=== PATIENT | male | born 1970 | race Caucasian/White ===

== ENCOUNTER 2020-11-09 18:35 | Emergency (ER) | payer BC, SELFPAY | END 2020-11-09 19:35 | disposition home or self-care (01) | LOC: BURERS 18:35 | DX: K40.90 Unilateral inguinal hernia, without obstruction or gangrene, not specified as recurrent (principal); M25.472 Effusion, left ankle | CPT/HCPCS: 99283 ==

== ENCOUNTER 2022-01-10 16:04 | Emergency (ER) | payer SELFPAY ==
[2022-01-10] MEDS ORDERED: Boostrix 0.5 ML (Tdap) VIAL (>/=7 yrs of age) ONE (16:24)
[2022-01-10] MEDS ORDERED: HYDROcodone/Acetaminophen 10/325 mg Tablet ONE (16:24)
[2022-01-10] MEDS ORDERED: Bupivacaine 0.5% 10 ML VIAL ONE (16:29)
[2022-01-10] MEDS ORDERED: Ondansetron ODT 4 MG TAB ONE (16:29)
[2022-01-10] MEDS ORDERED: Clindamycin 150 MG CAP ONE (16:29)
== END 2022-01-10 17:22 | disposition home or self-care (01) ==
LOC: BURERS 16:04
DX: U07.1 COVID-19 (principal); L03.011 Cellulitis of right finger; J06.9 Acute upper respiratory infection, unspecified
CPT/HCPCS: 26011; 87804; 90471; 90715; J3490; Q0162; U0003; U0005

== ENCOUNTER 2022-01-14 18:56 | Emergency (ER) | payer SELFPAY | END 2022-01-14 19:10 | disposition home or self-care (01) | LOC: BURERS 18:56 | DX: Z48.00 Encounter for change or removal of nonsurgical wound dressing (principal); I10 Essential (primary) hypertension | CPT/HCPCS: 99282 ==

== ENCOUNTER 2022-02-02 12:18 | Emergency (ER) | payer SELFPAY ==
[2022-02-02 12:52] LABS: #Basophils 0.1 thou/uL (0.0-0.2); #Eosinphils 0.2 thou/uL (0.0-0.7); #Lymphocytes 2.5 thou/uL (1.20-3.40); #Monocytes 0.6 thou/uL (0.11-0.59); #Neutrophils 3.2 thou/uL (1.40-6.50); %Basophils 1.3 % (0.0-1.0); %Eosinophils 2.4 % (0.0-10.0); %Lymphocytes 37.9 % (21.0-51.0); %Monocytes 9.7 % (0.0-10.0); %Neutrophils 48.7 % (42.0-75.0); Hemoglobin 12.2 g/dL (14.0-18.0); Mean Corpuscular HGB CONC 32.2 g/dL (32.0-36.0); Mean Corpuscular Hemoglobin 28.2 pg (27.0-31.0); Mean Corpuscular Volume 87.6 fl (78.0-98.0); Mean Platelet Volume 7.9 fL (7.4-10.4); Platelet Count 426 10x3/uL (130-400); RBC Distribution Width 13.7 % (11.5-14.5); Red Blood Cell (RBC) Count 4.32 mill/uL (4.70-6.10); White Blood Cell (WBC) Count 6.6 10x3/uL (4.8-10.8)
[2022-02-02 13:06] LABS: ALT (SGPT) 15 U/L (8-55); AST (SGOT) 15 U/L (5-34); Alkaline Phosphatase 63 U/L (40-110); Anion Gap 12 mmol/L (10-20); BUN (Urea Nitrogen) 11 mg/dL (8.4-25.7); Bilirubin, Total 0.3 mg/dL (0.2-1.2); Calc. Creatinine Clearance 0 mL/min (70-130); Calcium 9.5 mg/dL (7.8-10.44); Carbon Dioxide 28 mmol/L (22-29); Chloride 103 mmol/L (98-107); Estimated GFR 82; Globulin 3.6 g/dL (2.4-3.5); Glucose 85 mg/dL (70-105); Potassium 4.1 mmol/L (3.5-5.1); Protein, Total 7.6 g/dL (6.0-8.3); Sodium 139 mmol/L (136-145)
[2022-02-02] MEDS ORDERED: Morphine 4 MG/ML VIAL ONE (13:19)
[2022-02-02] MEDS ORDERED: Ondansetron PF 4 MG/2 ML Vial ONE (13:19)
[2022-02-02] MEDS ORDERED: cefTRIAXone\\ROCEPHIN 2 GM VIAL ONE (13:19)
[2022-02-02] MEDS ORDERED: Sodium Chloride 0.9% 100 ML ONE (13:20)
[2022-02-02] MEDS ORDERED: hydrALAZINE 20 MG/ML VIAL ONE (14:03)
[2022-02-02 16:29] LABS: SARS-CoV-2 NAA Rapid Test DETECTED (NotDetected)
== END 2022-02-02 19:45 | disposition short-term general hospital (02) ==
LOC: BURERS 12:18
DX: U07.1 COVID-19 (principal); L02.512 Cutaneous abscess of left hand; I10 Essential (primary) hypertension; Z79.899 Other long term (current) drug therapy
CPT/HCPCS: 36415; 80053; 85025; 86140; 96365; 96367; 96375; 96376; J0360; J0696; J2270; J2405; J3370; J3490; U0002